=== PATIENT | female | born 1960 | race Caucasian/White ===

== ENCOUNTER 2020-09-13 09:31 | Outpatient (REF) | payer MEDICARE, MEDICAID, SELFPAY ==
--- NOTE | 2020-09-13 09:42 | FL_ITS ---
EXAMINATION: FL BARIUM SWALLOW CLINICAL INFORMATION: Dysphagia. Soft tissue swelling sensation in the suprasternal notch by patient. COMPARISON: None TECHNIQUE: Barium swallow examination is performed using fluoroscopic evaluation in addition to multiple fluoroscopic spot views. The patient is imaged both upright and prone and using both thick and thin sulfate along with effervescent granules. Fluoroscopy time: 1.9 minutes DAP: 11.398 Gycm2 Images: 50 to FINDINGS: Following oral administration of thick barium, barium coated turkey and barium tablet, there is normal propagation of bolus from the oral cavity through the pharynx, esophagus into stomach without any evidence of mass effect, indentation or obstruction of the esophagus or the pharynx. No laryngeal penetration or aspiration seen. No retention of barium of food in the valleculae or piriform sinuses. On placing patient prone and oral administration of thick barium there is good distention of the entire esophagus without any intraluminal filling defect. No gastroesophageal reflux or hiatal hernia seen. FL/FL barium swallow IMPRESSION: Unremarkable barium swallow in upright standing and prone lying position. Patient's subjective feeling of a soft tissue lesion in the suprasternal notch could be related to thyroid gland.
== END 2020-09-13 09:32 | disposition home or self-care (01) ==
LOC: HO.XRAY 09:31
PROVIDERS: PCP Nurse Practitioner Family; Visit Provider Internal Medicine Gastroenterology
DX: R13.10 Dysphagia, unspecified (principal)
CPT/HCPCS: 74220

== ENCOUNTER 2022-07-09 07:25 | Outpatient (REF) | payer OTHER, SELFPAY ==
[2022-07-09 08:58] LABS: Cholesterol 155 mg/dL; HDL Cholesterol 61 mg/dL; LDL Cholesterol Calculated 86 mg/dl; Triglycerides 43 mg/dL
[2022-07-09 09:04] LABS: Estimated Average Glucose 126 mg/dL
== END 2022-07-09 07:26 | disposition home or self-care (01) ==
LOC: HO.LAB 07:25
PROVIDERS: PCP Internal Medicine Cardiovascular Disease; Visit Provider Registered Nurse
DX: Z79.899 Other long term (current) drug therapy (principal)
CPT/HCPCS: 36415; 80061; 83036

== ENCOUNTER 2022-11-22 09:42 | Outpatient (REF) | payer OTHER, SELFPAY ==
[2022-11-22 10:57] LABS: Cholesterol 159 mg/dL; HDL Cholesterol 58 mg/dL; LDL Cholesterol Calculated 90 mg/dl; Triglycerides 59 mg/dL
[2022-11-22 11:28] LABS: Estimated Average Glucose 123 mg/dL; Hemoglobin A1c % 5.9 %
== END 2022-11-22 09:43 | disposition home or self-care (01) ==
LOC: HO.LAB 09:42
PROVIDERS: PCP Internal Medicine Cardiovascular Disease; Visit Provider Registered Nurse
DX: F32.1 Major depressive disorder, single episode, moderate (principal)
CPT/HCPCS: 36415; 80061; 83036

== ENCOUNTER 2023-03-26 08:17 | Outpatient (REF) | payer OTHER, SELFPAY ==
--- NOTE | ~2023-03-26 | US_ITS ---
EXAMINATION: US ABDOMEN COMPLETE CLINICAL INFORMATION: Right upper quadrant pain. COMPARISON: None available. TECHNIQUE: Real-time imaging of the abdominal viscera. FINDINGS: PANCREAS: Visualized portions of the pancreas are unremarkable. The pancreatic tail is obscured by bowel gas. ABDOMINAL AORTA: The proximal, mid, and distal segments are normal in caliber. INFERIOR VENA CAVA: Visualized portions are normal. LIVER: The liver is normal in size. The liver contour is normal. Increased hepatic echogenicity which can be seen in the setting of hepatic steatosis or underlying liver disease. A 1.8 x 1.7 x 1.3 cm echogenic avascular liver lesion in the right hepatic lobe. There is no intrahepatic biliary duct dilatation seen. GALLBLADDER: Normal. The gallbladder is physiologically distended without evidence of stones, sludge, polyps, wall thickening or pericholecystic fluid. COMMON BILE DUCT: Normal in caliber measuring 0.4 cm in diameter. RIGHT KIDNEY: Multiple nonobstructing stones measuring up to 7 mm in the upper pole. No hydronephrosis or focal parenchymal lesions. The kidney measures 10.0 cm in maximum dimension. LEFT KIDNEY: Multiple nonobstructing stones measuring up to 5 mm in the lower pole. No hydronephrosis or focal parenchymal lesions. The kidney measures 11.6 cm in maximum dimension. SPLEEN: Normal. The spleen measures 10.0 cm in maximum dimension. FREE FLUID: None. US/US abdomen complete IMPRESSION: * Increased hepatic echogenicity which can be seen in the setting of hepatic steatosis or underlying liver disease. * A 1.8 cm echogenic, avascular liver lesion. In the absence of known malignancy or risk factors for hepatic malignancy this likely reflect a hemangioma. If known malignancy or risk factors for hepatic malignancy recommend an MR abdomen for definitive characterization. * Bilateral nonobstructing renal stones measuring up to 7 mm on the right and 5 mm on the left. No hydronephrosis.
[2023-03-26 11:20] LABS: MANUAL DIFF FLAG NO
[2023-03-26 11:28] LABS: Basophils Percent Auto 0.4 % (0-2); Eosinophils Absolute Auto 0.2 X10*3/uL (0.0-0.4); Eosinophils Percent Auto 3.3 % (0-4); Hematocrit 38.6 % (37.0-47.0); Hemoglobin 12.1 g/dl (12.0-16.0); Imm Gran Abs Auto 0.02 X10*3/uL (0.00-0.03); Imm Gran Pct Auto 0.3 % (0.0-0.4); Lymphocytes Percent Auto 28.3 % (20-40); Mean Corpuscular HGB Conc 31.3 g/dl (31.0-35.0); Mean Corpuscular Hemoglobin 27.6 pg (27.0-33.0); Mean Corpuscular Volume 87.9 fL (80.0-98.0); Mean Platelet Volume 11.4 fL (9.4-12.3); Monocytes Absolute Auto 0.4 X10*3/uL (0.1-1.2); Neutrophils Absolute Auto 4.3 x10*3/uL (2.0-8.3); Neutrophils Percent Auto 61.7 % (45-73); Platelet Count 188 X10*3/uL (160-400); Red Blood Count 4.39 X10*6/uL (4.20-5.50); Red Cell Distribution Width 14.2 % (11.0-16.0); White Blood Count 6.9 X10*3/uL (4.8-10.8)
[2023-03-26 11:48] LABS: Alanine Aminotransferase 18 U/L (0-31); Alkaline Phosphatase 84 U/L (39-117); Aspartate Amino Transferase 21 U/L (5-31); Bilirubin Direct 0.1 mg/dL (0.0-0.5); Bilirubin Total 0.4 mg/dL (0.0-1.0); Lipase 15 U/L (8-78); Total Protein 7.2 g/dL (6.5-8.0)
== END 2023-03-26 08:18 | disposition home or self-care (01) ==
LOC: HO.HMGCX 08:17
PROVIDERS: PCP Internal Medicine Cardiovascular Disease; Visit Provider Internal Medicine Gastroenterology
DX: R10.11 Right upper quadrant pain (principal)
CPT/HCPCS: 36415; 76700; 80076; 83690; 85025